=== PATIENT | female | born 1960 | race African-American/Black ===

== ENCOUNTER 2017-08-13 17:30 | Emergency (ER) | payer MEDICARE, MEDICAID ==
[~2017-08-13] VITALS: Ht 162.6 cm; Wt 63.5 kg
[~2017-08-13 17:30] MED LIST: MAALOX MAXIMUM355 M1 PO; OMEPRAZOLE40 M1 ORAL
[2017-08-13 17:49] VITALS: BP 107/64
[2017-08-13] MEDS ORDERED: TOBRAMYCIN5 ML OP (17:53)
[2017-08-13] MEDS ORDERED: ADULT WAL-100 MG/5 M ORAL (18:03)
[2017-08-13 18:15] VITALS: BP 107/64
[2017-08-13] MEDS ORDERED: LORazepam Inj 2mg/ml 1ml ONE (18:15)
--- NOTE | 2017-08-14 13:09 | Emergency Room Report ---
History of Present Illness General Chief Complaint: Upper Respiratory Illness Source: Patient, Medical Record Present Illness HPI Patient is a 57-year-old female who presented after increased cough and nasal congestion for the past 2 days. The patient reported having increased nonproductive cough. She denied any difficulty breathing or chest pain. She reports having some upper abdominal pain which she attributes to coughing. Patient denied any vomiting or diarrhea. Patient had several sick contacts at home. She reports increased eye redness and yellow discharge. Allergies: Coded Allergies: No Known Allergies (Unverified , 11/13/14) Patient History Past Medical History: see triage record Last Menstrual Period: N/A Reviewed Nursing Documentation: PMH: Agreed, PSxH: Agreed Nursing Documentation-PMH Past Medical History: No History, Except For Hx Cardiac Problems: No - HIV + Review of Systems All Other Systems: negative except mentioned in HPI Physical Exam Vital Signs Date Time Temp Pulse Resp B/P (MAP) Pulse Ox O2 Delivery O2 Flow Rate FiO2 08/13/17 17:49 98.2 88 18 107/64 95 Room Air General Appearance: well appearing, no apparent distress, alert, GCS 15 Head: normocephalic, atraumatic ENT: hearing grossly normal, normal voice Neck: full range of motion, supple Respiratory: no respiratory distress, speaking full sentences Cardiovascular #1: normal inspection, regular rate, rhythm Gastrointestinal: normal inspection, soft Musculoskeletal: normal inspection, no calf tenderness Neurologic: normal inspection, alert, oriented x3, responsive, it audit manager III-XII nml as tested, normal gait Psychiatric: mood/affect normal Skin: no rash Medical Decision Making Diagnostic Impression: Primary Impression: Upper respiratory infection Additional Impression: Conjunctivitis ER Course This presented for eye redness and discharge and cough. Patient has a benign exam and does not appear to require any further imaging or laboratory testing at this time. The patient presented viral respiratory infection. Patient appears to have some conjunctivitis. She was given topical antibiotic. The patient is advised to follow up with primary care doctor in 1-2 days. Patient is advised to return if any worsening condition or if any changes in status that are concerning. This report is dictated with [employer] stick inserter software which may occasionally lead to discrepancies related to use of this software. Last Vital Signs Date Time Temp Pulse Resp B/P (MAP) Pulse Ox O2 Delivery O2 Flow Rate FiO2 08/13/17 18:15 98.2 88 18 107/64 95 Room Air Status: improved Disposition: HOME, SELF-CARE Condition: Stable Scripts Guaifenesin* (ADULT WAL-TUSSIN*) 100 Mg/5 Ml Liquid 10 ML ORAL Q4H, #120 ML Prov: Eliazar Morton 08/13/17 Tobramycin (TOBRAMYCIN) 5 Ml Drops 5 ML OP FOUR TIMES A DAY, #5 ML Prov: Eliazar Morton 08/13/17 Referrals: NOT CHOSEN IPA/MD,REFERRING (PCP) Patient Instructions: Viral Conjunctivitis Eliazar Morton Aug 14, 2017 13:09
== END 2017-08-13 18:15 | disposition home or self-care (01) ==
LOC: EMR 18:12
DX: J06.9 Acute upper respiratory infection, unspecified (principal); H10.9 Unspecified conjunctivitis
CPT/HCPCS: 99283

== ENCOUNTER 2019-05-01 22:12 | Emergency (ER) | payer MEDICAID, MEDICARE ==
[~2019-05-01] VITALS: Ht 162.6 cm; Wt 80.3 kg
[~2019-05-01 22:12] MED LIST changes: +ADULT WAL-100 MG/5 M ORAL; +TOBRAMYCIN5 ML OP
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
[2019-05-01 22:40] VITALS: BP 136/86
--- NOTE | 2019-05-01 22:50 | NUR ---
ED Nurse Note: Patient cleared for discharge by ERMD. Patient verbalized understanding of discharge instructions and departed with all belongings.
[2019-05-01 22:51] VITALS: BP 136/86
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
== END 2019-05-01 22:51 | disposition home or self-care (01) ==
LOC: EMR 22:38
DX: R51 Headache (principal); I10 Essential (primary) hypertension; F31.9 Bipolar disorder, unspecified; B20 Human immunodeficiency virus [HIV] disease; Z88.2 Allergy status to sulfonamides; V43.52XA Car driver injured in collision with other type car in traffic accident, initial encounter; Y92.410 Unspecified street and highway as the place of occurrence of the external cause
CPT/HCPCS: 99282